=== PATIENT | male | born 1965 | race Caucasian/White ===

== ENCOUNTER 2022-09-12 08:41 | Emergency (ER) | payer SELFPAY ==
[~2022-09-12] VITALS: Ht 162.6 cm; Wt 90.9 kg
[2022-09-12 08:47] VITALS: BP 139/83; PULSE 83; RESP 19; TEMP 97.8
== END 2022-09-12 10:36 | disposition left against medical advice (07) ==
LOC: EMS 08:42
DX: Z53.21 Procedure and treatment not carried out due to patient leaving prior to being seen by health care provider (principal)
CPT/HCPCS: 99281; Z7502